=== PATIENT | male | born 1985 | race Two or more races ===

== ENCOUNTER 2021-12-14 18:45 | Emergency (ER) | payer SELFPAY ==
[~2021-12-14] VITALS: Ht 177.8 cm; Wt 88.1 kg
[2021-12-14 19:35] VITALS: BP 123/74
[2021-12-14] MEDS ORDERED: TETANUS-DIPTH-ACEL PERTUSSIS 0.5ML SYR Tdap IM ONE (22:45)
== END 2021-12-14 23:50 | disposition left against medical advice (07) ==
LOC: ER 18:45
DX: S51.012A Laceration without foreign body of left elbow, initial encounter (principal); W22.8XXA Striking against or struck by other objects, initial encounter; Y93.89 Activity, other specified; Y92.89 Other specified places as the place of occurrence of the external cause; Y99.8 Other external cause status
CPT/HCPCS: 12001

== ENCOUNTER 2021-12-22 10:56 | Emergency (ER) | payer SELFPAY ==
[~2021-12-22] VITALS: Ht 177.8 cm; Wt 87.0 kg
[2021-12-22 11:24] VITALS: BP 103/77
[2021-12-22] MEDS ORDERED: KETOROLAC TROMETH 60MG/2ML VIAL IM ONE (12:15)
[2021-12-22] MEDS ORDERED: IBUP800T27 PO (12:17)
== END 2021-12-22 12:46 | disposition home or self-care (01) ==
LOC: ER 10:56
DX: S83.92XA Sprain of unspecified site of left knee, initial encounter (principal); Z79.1 Long term (current) use of non-steroidal anti-inflammatories (NSAID); W11.XXXA Fall on and from ladder, initial encounter; Y93.89 Activity, other specified; Y92.89 Other specified places as the place of occurrence of the external cause; Y99.8 Other external cause status
CPT/HCPCS: 73562; 96372; 99283; J1885